=== PATIENT | female | born 2000 | race Caucasian/White ===

== ENCOUNTER 2020-10-03 14:07 | Inpatient (IN) | payer SELFPAY ==
[~2020-10-03] VITALS: Ht 167.6 cm; Wt 64.0 kg
--- NOTE | 2020-10-03 14:07 | NUR ---
PT BIBRA 76 C/O OD ON UNKOWN SUBSTANCE. 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 PT IS AAOX0, NOT IN RESPIRATORY DISTRESS, HOOKED TO MOLD CARPENTER, KEPT RESTED AND COMFORTABLE. WILL CONTINUE TO MONITOR.
--- NOTE | 2020-10-03 14:11 | NUR ---
SEEN AND EXAMINED BY .
--- NOTE | 2020-10-03 14:18 | NUR ---
URINE SPECIMEN COLLECTED AND SENT TO LAB.
[2020-10-03] MEDS ORDERED: NALOXONE PREFILLED SYRINGE 2 MG/2 ML SYRINGE ONE ×2 (14:33→19:01)
[2020-10-03 14:46] LABS: BILIRUBIN,URINE NEGATIVE (NEGATIVE); COLOR,URINE YELLOW (YELLOW); LEUKOCYTE ESTERASE ,URINE TRACE (NEGATIVE); NITRITE, URINE NEGATIVE (NEGATIVE); PROTEIN,URINE NEGATIVE (NEGATIVE); UGLUCOSE NEGATIVE (NEGATIVE); UROBILINOGEN,URINE 0.2 EU/dL (0.2)
[2020-10-03 14:47] LABS: BASOPHILS # (AUTO) 0.1 /CMM (0.0-0.2); BASOPHILS % (AUTO) 0.9 % (0.0-2.0); EOSINOPHILS % (AUTO) 1.4 % (0.0-6.0); HEMATOCRIT 41 % (33-45); HEMOGLOBIN 13.6 g/dL (11.5-14.8); LYMPHOCYTES # (AUTO) 1.6 /CMM (0.8-4.8); LYMPHOCYTES % (AUTO) 13.6 % (20.0-44.0); MEAN CORPUSCULAR HGB CONC 33 g/dl (31.0-36.0); MEAN CORPUSCULAR VOLUME 94 fL (82-100); MONOCYTES % (AUTO) 8.6 % (2.0-12.0); NEUTROPHILS % (AUTO) 75.5 % (43.0-81.0); PLATELET COUNT (AUTO) 219 /CMM (150-450); RED BLOOD CELL COUNT(AUTO) 4.36 MIL/uL (4.0-5.2)
[2020-10-03 14:58] LABS: ALANINE AMINOTRANSFERASE 28 U/L (12-78); ALBUMIN 3.4 g/dL (3.4-5.0); ALCOHOL, BLOOD < 3 mg/dL (0-0); ALKALINE PHOSPHATASE 59 U/L (46-116); ASPARTATE AMINOTRANSFERASE 28 U/L (15-37); BILIRUBIN,DIRECT 0.1 mg/dL (0.0-0.2); BILIRUBIN,TOTAL 0.4 mg/dL (0.2-1.0); CALCIUM, SERUM 7.9 mg/dL (8.5-10.1); CARBON DIOXIDE 22 mmol/L (21-32); CHLORIDE 100 mmol/L (98-107); GLUCOSE 171 mg/dL (74-106); POTASSIUM 3.6 mmol/L (3.5-5.1); SODIUM SERUM 137 mmol/L (136-145); TOTAL PROTEIN, SERUM 6.3 g/dL (6.4-8.2); UREA NITROGEN, BLOOD 18 mg/dL (7-18)
[2020-10-03] MEDS ORDERED: NALOXONE HCL 0.4 MG/ML AMPUL IV ONE ×2 (15:00→19:00)
[2020-10-03] MEDS ORDERED: IV NS 0.9% 1,000 ML BAG IV ONE (15:00)
[2020-10-03 15:11] LABS: ACETAMINOPHEN < 0 ug/ml (10-30)
[2020-10-03 15:32] LABS: BACTERIA,URINE Rare /HPF (None Seen); RBC,URINE 0-2 /HPF (0-2); SQUAMOUS EPITHELIAL CELL,UR Few /HPF (None Seen)
--- NOTE | 2020-10-03 19:00 | NUR ---
patient 02 sat dropped 88% on 2lpm via NC, non-rebreather mask 02 sat 95%. Will continue to monitor accordingly.
--- NOTE | 2020-10-03 19:05 | NUR ---
wheeled patient to ct
--- NOTE | 2020-10-03 19:10 | NUR ---
patient came back from ct
[2020-10-03 20:19] LABS: ABG BASE EXCESS -3.2 mmol/L; ABG OXYGEN SATURATION 94.4 % (92.0-98.5); ABG PCO2 44.9 mmHg (35.0-45.0); ABG PH 7.326 (7.350-7.450); ABG PO2 80.2 mmHg (75.0-100.0); AaDO2 587.9 mmHg; COHb 0.5 % (0.5-1.5); MetHb 0.2 % (0.0-1.5); O2Hb 93.7 % (94.0-97.0); SITE, ABG Right Radial
--- NOTE | 2020-10-03 21:21 | NUR ---
COVID SWAB SENT TO LAB
[2020-10-03] MEDS ORDERED: ONDANSETRON HCL/PF 4 MG/2 ML VIAL IVP PRN (21:30)
[2020-10-03] MEDS ORDERED: ACETAMINOPHEN 325 MG TABLET PO PRN (21:30)
[2020-10-03] MEDS ORDERED: MAG HYDROX/AL HYDROX/SIMETH 30 ML UDC PO PRN (21:30)
[2020-10-03] MEDS ORDERED: IV NS 0.9% 1,000 ML IV SCH (21:30)
[2020-10-03] MEDS ORDERED: Z GUARD REMEDY 2 OZ OINT TP PRN (21:30)
[2020-10-03] MEDS ORDERED: MAGNESIUM HYDROXIDE 30 ML UDC PO PRN (21:30)
--- NOTE | 2020-10-03 21:54 | NUR ---
pt had an episode of incontinence. pt was cleaned and dried. repositioned and was placed on titerated the supplemental o2 to 10 LPM via symple mask. will cont to monitor ,
--- NOTE | 2020-10-04 01:09 | NUR ---
PT AWAKE, ALERT AND ORIENTED X 3. BREATHING EVENLY. NO SOB. NPA WAS AND SUPPLEMENTAL O2 WAS REMOVED. PT IS TOLERATING R/A WELL AND SATTING AT 97-99% ON R/A. REPONSIVE WELL TO QUESTIONS . DENIED ANY PAIN ALTHOUGH STILL WEAK AND SLEEPY. SWALLOW EVAL DONE AT BED SIDE. PT ABLE TO DRINK AND WHOLE CUP OF WATER W. NO S/S OF APIRATION. PT'S BELONGINGS WERE GIVEN TO THE PT INCLUDING HER CELL PHONE. PT IS USING HER CELL PHONE NOW TO MAKE A PHONE CALL. ON ONGOING IVF HYDRATION TOLERATED WELL W/ INTACT IV SITE. WILL CONT TO MONITOR ,
[2020-10-04 03:53] LABS: BASOPHILS % (AUTO) 0.1 % (0.0-2.0); HEMATOCRIT 43 % (33-45); HEMOGLOBIN 14.7 g/dL (11.5-14.8); LYMPHOCYTES # (AUTO) 0.6 /CMM (0.8-4.8); LYMPHOCYTES % (AUTO) 3.4 % (20.0-44.0); MEAN CORPUSCULAR HGB CONC 34 g/dl (31.0-36.0); MEAN CORPUSCULAR VOLUME 92 fL (82-100); MONOCYTES # (AUTO) 1.1 /CMM (0.1-1.30); NEUTROPHILS # (AUTO) 16.8 /CMM (1.8-8.9); NEUTROPHILS % (AUTO) 90.5 % (43.0-81.0); PLATELET COUNT (AUTO) 224 /CMM (150-450); RED BLOOD CELL COUNT(AUTO) 4.71 MIL/uL (4.0-5.2); WHITE BLOOD COUNT (AUTO) 18.5 K/uL (4.3-11.0)
[2020-10-04 04:07] LABS: CALCIUM, SERUM 8.6 mg/dL (8.5-10.1); CREATININE 0.8 mg/dL (0.6-1.3); MAGNESIUM 1.7 mg/dL (1.8-2.4); PHOSPHORUS 3.4 mg/dL (2.5-4.9); POTASSIUM 3.3 mmol/L (3.5-5.1)
--- NOTE | 2020-10-04 06:04 | NUR ---
pt a, ox4, ambulatory to the bathroom with steady gait. room air tolerated well. PO tolerated weel w. no n/v or aspiration episode. pt stated willing to leave the hospital and does not wanna stay here, Patient does not wish to proceed with medical care recommended by and nurses. Patient given information related to possible complications, up to and including , which could occur as a result of leaving the hospital at this time. Patient verbalizes understanding of risks involved due to leaving against medical advice. Patient has signed AMA form. Dr. Hamilton made aware. IV removed. Catheter intact and site benign. Pressure and 4x4 applied to site. No bleeding noted. Patient discharged to home AMA.
[2020-10-04 06:08] VITALS: BP 115/57
[2020-10-04] MEDS ORDERED: Magnesium 1GM/D5W 100ML PREMIX 100 ML IV SCH (11:00)
[2020-10-04] MEDS ORDERED: POTASSIUM CHLORIDE 20 MEQ TAB.PRT.SR PO SCH (11:30)
== END 2020-10-04 21:00 | disposition left against medical advice (07) | DRG 917 ==
LOC: ER 14:10 → TRANSITION 21:10 → EDBD 21:10
PROVIDERS: ADMIT Internal Medicine; ATTEND Internal Medicine
DX: T50.901A Poisoning by unspecified drugs, medicaments and biological substances, accidental (unintentional), initial encounter (principal); G92 Toxic encephalopathy; E87.2 Acidosis; Y92.9 Unspecified place or not applicable
CPT/HCPCS: 36415; 36600; 70450-TC; 71045-TC; 80048-TC; 80076-TC; 81001; 82962-TC; 83735-TC; 84100-TC; 84702-TC; 84703-TC; 85025-TC; G0378; G0480; J2310; J2405; J3475; J7030